=== PATIENT | female | born 2000 | race Hispanic/Latino ===

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

== ENCOUNTER 2018-03-25 00:49 | Inpatient (IN) | payer OTHER ==
[2018-03-25 01:50] VITALS: BMI 36.8
[2018-03-25 03:16] LABS: Hemoglobin 11.1 g/dL (12.0-16.0); Mean Corpuscular HGB CONC 32.9 g/dL (32.0-36.0); Mean Corpuscular Hemoglobin 26.6 pg (25.0-35.0); Mean Platelet Volume 9.8 fL (7.4-10.4); Platelet Count 336 thou/uL (130-400); RBC Distribution Width 12.6 % (11.5-14.5); Red Blood Cell (RBC) Count 4.16 mill/uL (4.00-5.20); White Blood Cell (WBC) Count 8.8 thou/uL (4.8-10.8)
[2018-03-25] MEDS ORDERED: Promethazine HCl 25 MG/ML VIAL IM PRN ×2 (03:31→16:36)
[2018-03-25] MEDS ORDERED: Acetaminophen 500 MG TAB PO PRN (03:31)
[2018-03-25] MEDS ORDERED: Ondansetron PF 4 MG/2 ML Vial IVP PRN ×3 (03:31→19:25)
[2018-03-25] MEDS ORDERED: Lactated Ringer's 1,000 ML IV SCH ×3 (03:31→19:25)
[2018-03-25] MEDS ORDERED: NS w/ Oxytocin 10 units 500 ML IVPB SCH (03:45)
[2018-03-25 03:55] LABS: HBSAg Index 0.22 S/CO (0-0.99); Hep B Surf Ag Non-Reactive S/CO (NonReactive)
[2018-03-25 04:43] LABS: Syphilis Antibody Nonreactive (Nonreactive); Syphilis Antibody Index 0.05 S/CO (<1.00 Non-Reactive)
[2018-03-25] MEDS: Butorphanol Tartrate 1 MG/ML VIAL SLOW IVP PRN ×4 (05:40→14:49)
[2018-03-25] MEDS ORDERED: NS w/ Oxytocin 10 units 500 ML ONE (07:33)
[2018-03-25] MEDS ORDERED: Bicitra 30 ML UDCUP PO SCH (16:00)
[2018-03-25] MEDS ORDERED: CEFAZOLIN/Water 2 GM/20 ML SYRINGE SLOW IVP SCH (16:00)
[2018-03-25] MEDS ORDERED: CEFAZOLIN 2 GM/50 ML-DEXTROSE 2 GM in Premix Bag 1 BAG IVPB SCH (16:00)
[2018-03-25] MEDS ORDERED: Morphine PF 1 MG/ML SYR ONE (16:17)
[2018-03-25] MEDS ORDERED: Oxytocin 10 UNITS/ML VIAL ONE (16:17)
[2018-03-25] MEDS ORDERED: Meperidine HCl/PF 25 MG/ML VIAL SLOW IVP PRN (16:35)
[2018-03-25] MEDS ORDERED: HYDROmorphone 2 MG/ML VIAL SLOW IVP PRN (16:35)
[2018-03-25] MEDS ORDERED: L&D-Morphine 4 MG/ML VIAL SLOW IVP PRN (16:35)
[2018-03-25] MEDS ORDERED: Ondansetron HCl/PF 4 MG/2 ML Vial IVP PRN (16:35)
[2018-03-25] MEDS ORDERED: Naloxone HCl 0.4 mg/ml Vial IVP PRN ×2 (16:36)
[2018-03-25] MEDS ORDERED: Ketorolac Tromethamine 30 MG/ML VIAL IVP PRN (16:36)
[2018-03-25] MEDS ORDERED: Eucerin (Mineral Oil/Petrolatum,White) 30 gm Jar TOP PRN (16:36)
[2018-03-25] MEDS ORDERED: Promethazine HCl 25 MG SUPP PR PRN (16:36)
[2018-03-25] MEDS ORDERED: Naloxone HCl 0.4 mg/ml Vial IV PRN (16:36)
[2018-03-25] MEDS ORDERED: diphenhydrAMINE 50 MG/ML VIAL IVP PRN (16:36)
[2018-03-25] MEDS ORDERED: Communication Order-Pharmacy FS SCH (16:45)
[2018-03-25] MEDS ORDERED: Ketorolac Tromethamine 30 MG/ML VIAL IVP SCH (16:45)
[2018-03-25] MEDS ORDERED: Ondansetron PF 4 MG/2 ML Vial ONE (17:29)
--- NOTE | 2018-03-25 17:55 | OP ---
DATE OF PROCEDURE: 03/25/2018 RESIDENT SURGEON: Dr. Lavon Elena. PROCEDURE PERFORMED: Primary low transverse section. PREOPERATIVE DIAGNOSES: 1. Term intrauterine . 2. Failure to progress. POSTOPERATIVE DIAGNOSES: 1. Term intrauterine . 2. Failure to progress. ANESTHESIA: Spinal. INDICATION FOR PROCEDURE: This patient is a 17-year-old G1, P0 female at 40 and three weeks gestation, presenting for a repeat scheduled . PROCEDURE IN DETAIL: After risks, benefits, and alternatives were explained to the patient, she gave informed consent. Preoperative antibiotics included cefazolin 2 g IV. The patient was taken to the operating room and spinal anesthesia was initiated. She was placed in a supine position with a left tilt and prepped and draped in sterile fashion. A Pfannenstiel incision was made with a scalpel and carried down to the level of fascia, which was sharply nicked. Fascial cut was extended bilaterally with the Hernandes scissors. Inferior and superior edges of the cut fascial edges were elevated with Nicolas clamps and underlying rectus muscle was sharply and bluntly dissected free. The recti were divided digitally and retracted manually. The peritoneum was entered bluntly and retracted manually. Bladder blade was placed. Bladder flap was unnecessary as the bladder was low. A low- transverse score was made with a scalpel and the uterus was entered in the midline with a scalpel. Clear fluid was seen. Hysterotomy was extended manually. The was noted to be vertex and easily delivered by fundal pressure. Mouth and nares were bulb suctioned. Cord clamped was cut and grossly normal male infant was handed to the waiting nurse. Cord blood was obtained. Placenta was manually extracted and found to be intact with three-vessel cord and discarded. The uterus was externalized and the endometrium was curetted with dry lap. The bladder blade was replaced. The uterus was closed with a running nonlocking 0 Vicryl suture, followed by one [id number] suture with 0 Vicryl. Following this, hemostasis was noted. The abdomen was irrigated with saline and suctioned free of clots. The uterus was internalized and the hysterotomy was again noted to be hemostatic. The peritoneum was closed using a running nonlocking 3-0 chromic suture. The fascia was closed with a running nonlocking 0 PDS suture. The subcutaneous tissue was irrigated and bleeders were bovied. The subcutaneous layer was approximated with three simple interrupted knots of 3-0 Vicryl. The skin was approximated with mara and pressure dressing was placed. All counts were correct. The patient tolerated the procedure well and was taken to the recovery room in stable condition. ESTIMATED BLOOD LOSS: 650 mL. COMPLICATIONS: None. SPECIMEN: Cord blood sent to lab for blood type. FINDINGS: Grossly normal female infant delivered at 1641 hours on 03/25/2018. Grossly normal placenta with three vessel cord discarded. DRAINS: Velasquez to gravity draining clear urine. Job ID: [id number] [facility]
[2018-03-25] MEDS ORDERED: HYDROcodone/Acetaminophen 5/325 mg Tablet PO PRN ×2 (19:25)
[2018-03-25] MEDS ORDERED: Bisacodyl 10 MG SUPP PR PRN (19:25)
[2018-03-25] MEDS ORDERED: Lanolin Ointment 7 GM TUBE TOP PRN (19:25)
[2018-03-25] MEDS ORDERED: diphenhydrAMINE 25 MG CAP PO PRN (19:25)
[2018-03-25] MEDS ORDERED: Simethicone Chewable 80 MG TAB PO PRN (19:25)
[2018-03-25] MEDS ORDERED: NS / Oxytocin 40 units/1000ml 1,000 ML IV SCH (19:25)
[2018-03-25] MEDS ORDERED: Meperidine HCl/PF 25 MG/ML VIAL IM PRN (19:25)
[2018-03-25] MEDS ORDERED: Ibuprofen 800 MG TAB PO SCH (22:00)
[2018-03-26] MEDS: Docusate Calcium (SURFAK) 240 MG CAP PO SCH ×3 (03:33→21:36)
[2018-03-26 06:38] LABS: Hemoglobin 9.8 g/dL (12.0-16.0); Mean Corpuscular HGB CONC 32.8 g/dL (32.0-36.0); Mean Corpuscular Hemoglobin 27.1 pg (25.0-35.0); Mean Corpuscular Volume 82.7 fL (78.0-98.0); Mean Platelet Volume 9.3 fL (7.4-10.4); Platelet Count 268 thou/uL (130-400); RBC Distribution Width 12.7 % (11.5-14.5); Red Blood Cell (RBC) Count 3.61 mill/uL (4.00-5.20); White Blood Cell (WBC) Count 8.9 thou/uL (4.8-10.8)
[2018-03-26] MEDS ORDERED: Ondansetron PF 4 MG/2 ML Vial IVP PRN (10:00)
[2018-03-26] MEDS ORDERED: HYDROcodone/Acetaminophen 5/325 mg Tablet PO PRN ×2 (10:00)
[2018-03-26] MEDS ORDERED: Meperidine HCl/PF 25 MG/ML VIAL IM PRN (10:00)
[2018-03-26] MEDS: Prenatal Vitamin 1 TAB PO SCH (10:25)
[2018-03-26] MEDS: Ferrous Sulfate 325 MG TAB PO SCH ×2 (10:25→18:18)
[2018-03-26] MEDS: Ibuprofen 800 MG TAB PO SCH ×2 (14:19→21:36)
[2018-03-26] MEDS ORDERED: Lactated Ringer's 1,000 ML IV SCH (18:15)
[2018-03-27] MEDS: Ibuprofen 800 MG TAB PO SCH ×3 (06:23→22:06)
[2018-03-27] MEDS: Docusate Calcium (SURFAK) 240 MG CAP PO SCH ×2 (10:25→22:07)
[2018-03-27] MEDS: Prenatal Vitamin 1 TAB PO SCH (10:26)
[2018-03-27] MEDS: Ferrous Sulfate 325 MG TAB PO SCH ×2 (10:26→17:25)
[2018-03-28 08:18] VITALS: BP 110/59; TEMP 98.1
[2018-03-28] MEDS: Ferrous Sulfate 325 MG TAB PO SCH (08:40)
[2018-03-28] MEDS: Ibuprofen 800 MG TAB PO SCH (08:41)
[2018-03-28] MEDS: Prenatal Vitamin 1 TAB PO SCH (08:41)
[2018-03-28] MEDS: Docusate Calcium (SURFAK) 240 MG CAP PO SCH (09:50)
== END 2018-03-28 13:30 | disposition home or self-care (01) | DRG 788 ==
LOC: RAD 00:49 → L&D 03:55 → 3SW 20:13
PROVIDERS: ADMIT Family Medicine; ATTEND Family Medicine
PROC: 10D00Z1 Extraction of Products of Conception, Low, Open Approach (ICD-10-PCS; principal; 2018-03-25)
DX: O34.211 Maternal care for low transverse scar from previous cesarean delivery (principal); O48.0 Post-term pregnancy; Z3A.40 40 weeks gestation of pregnancy; Z37.0 Single live birth
CPT/HCPCS: 36415; 51702; 85027; 86780; 86850; 86900; 86901; 87340; 99285; J0595; J1200; J1885; J2274; J2310; J2405; J2590

== ENCOUNTER 2019-01-21 14:20 | Outpatient (CLI) | payer OTHER, MEDICAID ==
--- NOTE | 2019-01-21 15:14 | ULT ---
EXAM: OB ultrasound COMPARISON: None HISTORY: female. Evaluate size, dates, and anatomy. TECHNIQUE: Multiplanar grayscale and color Doppler transabdominal sonographic images are obtained. FINDINGS: There is a single intrauterine gestation in cephalic presentation. Cardiac Doppler demonstr ates heart tones with a heart rate of 134 beats per minute. The placenta is located posteriorly without evidence of placenta previa. Subjectively, there is a normal amount of amniotic f luid. The cervical length based on transabdominal imaging measures 3.5 centimeters. biometry measurements: BPD 4.56 cm -- 19 weeks 6 days HC 17.63 cm -- 20 weeks 1 day AC 14.7 cm -- 20 weeks FL 3.03 cm -- 19 weeks 3 days The estimated gestational age by ultrasound is 19 weeks 6 days with an FELIPE on06/11/2019. Gestational a ge by the last menstrual period is 22 weeks 3 days. The estimated weight by ultrasound is 310 g (11 ounces). This represents 2 percentile for weight. A 4 chambered heart is visualized. The cerebellum, visualized portions of the spine, kidneys, u rinary bladder, and cord insertion demonstrate a normal sonographic appearance. A three-vessel cord is not visualized, but there is flow on either side of the urinary bladder sugges ting a three-vessel cord.. No anomalies are seen. IMPRESSION: 1. Single intrauterine gestation in cephalic presentation with heart tones documented. Estimat ed gestational age by ultrasound is 19 weeks 6 days. Gestational age by the last menstrual period is 22 weeks and 3 days. 2. Estimated weight is 310 g (11 ounces).
== END 2019-01-21 14:21 | disposition home or self-care (01) ==
LOC: BICULT 14:20
PROVIDERS: ATTEND Family Medicine
DX: O09.892 Supervision of other high risk pregnancies, second trimester (principal); Z3A.22 22 weeks gestation of pregnancy
CPT/HCPCS: 76805

== ENCOUNTER → 2019-05-29 19:59 | Inpatient (IN) | payer OTHER ==
[2019-05-26 10:37] VITALS: BMI 31.6
[2019-05-26] MEDS: Lactated Ringer's 1,000 ML IV SCH ×3 (10:38→21:16)
[2019-05-26 10:56] LABS: Hemoglobin 9.6 g/dL (12.0-16.0); Mean Corpuscular HGB CONC 32.8 g/dL (32.0-36.0); Mean Corpuscular Hemoglobin 25.2 pg (25.0-35.0); Mean Corpuscular Volume 76.9 fL (78.0-98.0); Mean Platelet Volume 9.2 fL (7.4-10.4); Platelet Count 320 thou/uL (130-400); RBC Distribution Width 12.6 % (11.5-14.5); Red Blood Cell (RBC) Count 3.79 mill/uL (4.00-5.20); White Blood Cell (WBC) Count 7.2 thou/uL (4.8-10.8)
[2019-05-26 11:29] LABS: Syphilis Antibody Nonreactive (Nonreactive); Syphilis Antibody Index 0.09 S/CO (<1.00 Non-Reactive)
[2019-05-26 11:31] LABS: HBSAg Index 0.26 S/CO (0-0.99); Hep B Surf Ag Non-Reactive S/CO (NonReactive)
--- NOTE | 2019-05-26 19:30 | OP ---
DATE OF PROCEDURE: 05/26/2019 PRIMARY SURGEON: Ryan Borden MD RESIDENT SURGEON: Mady Mosley DO PROCEDURE PERFORMED: Repeat low transverse section. PREOPERATIVE DIAGNOSES: 1. Term intrauterine at 39 weeks gestation. 2. Previous section x1. POSTOPERATIVE DIAGNOSES: 1. Term intrauterine , delivered. 2. Previous section x1. ANESTHESIA: Spinal. INDICATIONS: This is a 18-year-old, G2, P1-0-0-1, at 39 weeks gestation, who presented for repeat scheduled . DESCRIPTION OF PROCEDURE: After risks, benefits, and alternatives were explained to the patient, she gave informed consent. Preoperative antibiotics included cefazolin 2 g IV. The patient was taken to the operating room and spinal anesthesia was initiated. She was placed in supine position with a left tilt and prepped and draped in usual sterile fashion. A Pfannenstiel incision was made along the previous incision with a scalpel and carried down to the level of fascia, which was sharply nicked. The fascial cut was extended bilaterally with Hernandes scissors. Inferior and superior edges of the cut fascial edges were elevated with Nicolas clamps. Underlying rectus muscles were sharply and bluntly dissected free. The recti were divided using hemostats and Hernandes scissors. Once midline was entered and the recti were divided and retracted manually. The peritoneum was also entered bluntly and retracted manually. Bladder blade was placed. Low transverse score was made with a scalpel. The uterus was entered in the midline with the scalpel. Clear fluid was seen. Hysterotomy was extended manually. The mouth and nares were bulb suctioned. Cord was clamped and cut and grossly normal male. was handed to awaiting nurse. Cord blood was obtained. Placenta was manually extracted and found to be intact with 3-vessel cord discarded. The uterus was externalized and endometrium was curetted with a dry lap. Bladder blade was placed and the uterus was closed with a running locking #1 Monocryl, followed by a [id number] stitch on the right lateral aspect of the hysterotomy site. After this, hemostasis was noted. The abdomen was irrigated with saline and suctioned free of clots as well as anterior and posterior to uterus. Seprafilm was placed, and then, the uterus was internalized and hysterotomy was again noted to be hemostatic. The peritoneum was closed using a running nonlocking 3-0 Vicryl suture. The fascia was then closed with a running nonlocking 0 PDS suture. The subcutaneous tissue was irrigated and bleeders were cauterized. The subcutaneous tissue was brought together using 3 separate interrupted sutures on a 3-0 Vicryl. The skin was approximated with mara and pressure dressing was placed. All counts were correct. The patient tolerated the procedure well and was taken to recovery room in stable condition. ESTIMATED BLOOD LOSS: 455 mL. COMPLICATIONS: None. SPECIMENS: Cord blood sent to lab for blood type. FINDINGS: Grossly normal male with Apgars of 8 and 9 at 1 and 5 minutes respectively. Grossly normal placenta, 3-vessel cord discarded. DRAINS: Velasquez to gravity, draining clear urine. Job ID: [id number] [facility]
[2019-05-26] MEDS: Ketorolac Tromethamine 30 MG/ML VIAL IVP SCH (20:17)
[2019-05-26] MEDS: Ferrous Sulfate 325 MG TAB PO SCH (21:19)
[2019-05-26] MEDS: Docusate Calcium (SURFAK) 240 MG CAP PO SCH (21:19)
[2019-05-27] MEDS: Ketorolac Tromethamine 30 MG/ML VIAL IVP SCH ×2 (00:17→05:32)
[2019-05-27 05:01] LABS: Hemoglobin 8.2 g/dL (12.0-16.0); Mean Corpuscular HGB CONC 32.4 g/dL (32.0-36.0); Mean Corpuscular Hemoglobin 25.1 pg (25.0-35.0); Mean Corpuscular Volume 77.5 fL (78.0-98.0); Mean Platelet Volume 9.2 fL (7.4-10.4); Platelet Count 242 thou/uL (130-400); RBC Distribution Width 12.3 % (11.5-14.5); Red Blood Cell (RBC) Count 3.27 mill/uL (4.00-5.20); White Blood Cell (WBC) Count 11.6 thou/uL (4.8-10.8)
[2019-05-27] MEDS: Prenatal Vitamin 1 TAB PO SCH (09:07)
[2019-05-27] MEDS: Ferrous Sulfate 325 MG TAB PO SCH ×2 (09:07→21:27)
[2019-05-27] MEDS: Docusate Calcium (SURFAK) 240 MG CAP PO SCH ×2 (09:07→21:29)
[2019-05-27] MEDS: Ibuprofen 800 MG TAB PO SCH ×2 (14:37→21:27)
[2019-05-27] MEDS: HYDROcodone/Acetaminophen 5/325 mg Tablet PO PRN (17:15)
[2019-05-28] MEDS: Ibuprofen 800 MG TAB PO SCH ×3 (05:13→21:51)
[2019-05-28] MEDS: Ferrous Sulfate 325 MG TAB PO SCH ×2 (08:58→21:51)
[2019-05-28] MEDS: Prenatal Vitamin 1 TAB PO SCH (08:58)
[2019-05-28] MEDS: HYDROcodone/Acetaminophen 5/325 mg Tablet PO PRN ×3 (08:58→20:34)
[2019-05-28] MEDS: Docusate Calcium (SURFAK) 240 MG CAP PO SCH ×2 (08:58→21:51)
[2019-05-29] MEDS: Ibuprofen 800 MG TAB PO SCH ×2 (05:01→14:40)
[2019-05-29 08:19] VITALS: BP 116/58; TEMP 97.9
[2019-05-29] MEDS: Docusate Calcium (SURFAK) 240 MG CAP PO SCH (09:11)
[2019-05-29] MEDS: Ferrous Sulfate 325 MG TAB PO SCH (09:11)
[2019-05-29] MEDS: Prenatal Vitamin 1 TAB PO SCH (09:11)
[2019-05-29] MEDS: HYDROcodone/Acetaminophen 5/325 mg Tablet PO PRN ×2 (09:12→18:34)
[~2019-05-29 19:59] MED LIST: Adacel (T-DAP) 0.5 ML SYRINGE IM ONE; Bicitra 30 ML UDCUP PO SCH; Bisacodyl 10 MG SUPP PR PRN; CEFAZOLIN 2 GM in Premix Bag 1 BAG IVPB SCH; Communication Order-Pharmacy FS SCH; HYDROcodone/Acetaminophen 5/325 mg Tablet PO PRN; HYDROmorphone 2 MG/ML VIAL SLOW IVP PRN; Ketorolac Tromethamine 30 MG/ML VIAL IVP PRN; Ketorolac Tromethamine 30 MG/ML VIAL IVP SCH; Ketorolac Tromethamine 30 MG/ML VIAL ONE; L&D-Morphine 4 MG/ML VIAL SLOW IVP PRN; Lanolin Ointment 7 GM TUBE TOP PRN; MORPHINE 5 MG/10 ML PF VIAL ONE; Meperidine HCl/PF 25 MG/ML VIAL IM PRN; Meperidine HCl/PF 25 MG/ML VIAL SLOW IVP PRN; Morphine 4 MG/ML VIAL ONE; NS / Oxytocin 40 units/1000ml 1,000 ML IV SCH; Naloxone HCl 0.4 mg/ml Vial IV PRN; Naloxone HCl 0.4 mg/ml Vial IVP PRN; Ondansetron HCl/PF 4 MG/2 ML Vial IVP PRN; Ondansetron PF 4 MG/2 ML Vial IVP PRN; Ondansetron PF 4 MG/2 ML Vial ONE; Oxytocin 10 UNITS/ML VIAL ONE; PHENYLEPHRINE-NS 100 MCG/ML 10 ML SYRINGE ONE; PROPOFOL 0 ML ONE; Promethazine HCl 25 MG SUPP PR PRN; Promethazine HCl 25 MG/ML VIAL IM PRN; Simethicone Chewable 80 MG TAB PO PRN; Succinylcholine Chloride 20 MG/ML 10 ml SYRINGE FS ONE; diphenhydrAMINE 25 MG CAP PO PRN; diphenhydrAMINE 50 MG/ML VIAL IVP PRN; hydrALAZINE 20 MG/ML VIAL SLOW IVP PRN
== END | disposition home or self-care (01) | DRG 788 ==
LOC: EDSTATUS 03-24 11:51 → L&D 05-26 10:31 → 3SW 05-26 16:02
PROVIDERS: ADMIT Family Medicine; ATTEND Family Medicine
PROC: 10D00Z1 Extraction of Products of Conception, Low, Open Approach (ICD-10-PCS; principal; 2019-05-26)
PROC: 3E0P05Z Introduction of Adhesion Barrier into Female Reproductive, Open Approach (ICD-10-PCS; 2019-05-26)
DX: O34.211 Maternal care for low transverse scar from previous cesarean delivery (principal); Z3A.39 39 weeks gestation of pregnancy; Z37.0 Single live birth
CPT/HCPCS: 36415; 51702; 85027; 86780; 86850; 86900; 86901; 87340; J0690; J1885; J2270; J2274; J2405; J2550; J2590; J2704; Q0163

== ENCOUNTER 2019-06-28 23:49 | Emergency (ER) | payer OTHER | END 2019-06-29 00:10 | disposition home or self-care (01) | LOC: ERS 23:49 | DX: Z48.817 Encounter for surgical aftercare following surgery on the skin and subcutaneous tissue (principal) | CPT/HCPCS: 99282 ==

== ENCOUNTER 2020-08-18 10:01 | Outpatient (CLI) | payer OTHER | END 2020-08-18 10:02 | disposition home or self-care (01) | LOC: BICULT 10:01 | PROVIDERS: ATTEND Family Medicine | DX: O09.92 Supervision of high risk pregnancy, unspecified, second trimester (principal); Z3A.18 18 weeks gestation of pregnancy | CPT/HCPCS: 76805 ==